=== PATIENT | female | born 1990 | race Caucasian/White ===

== ENCOUNTER 2021-07-23 11:32 | Outpatient (CLI) | payer OTHER, SELFPAY ==
[2021-07-23 13:17] LABS: Hematocrit 38.1 % (37-47); Hemoglobin 12.8 g/dL (12.0-15.0); Mean Corp Hgb Conc 33.6 g/dL (32-36); Mean Corpuscular Hgb 29.4 pg (27.0-32.0); Mean Corpuscular Volume 87.4 fL (81-99); Mean Platelet Vol. 9.8 fl (6.2-12.0); Platelet Count 307 K/mm3 (150-450); RBC Distribution Width CV 13.8 % (11.6-14.6); RBC Distribution Width SD 44.4 fl (35.1-43.9); Red Blood Count 4.36 M/mm3 (4.2-5.4)
[2021-07-23 13:37] LABS: Estradiol 33.8 pg/mL; Follicle Stimulating Hormone 13.4 mIU/mL; Prolactin 136.8 ng/mL; T4 Free Direct 1.03 ng/dL (0.76-1.46); Thyroid Stim Hormone (TSH) 3.84 uIU/mL (0.358-3.74)
== END 2021-07-23 23:59 | disposition home or self-care (01) ==
LOC: WOBLAB 11:36
PROVIDERS: Visit Provider Obstetrics & Gynecology
DX: N97.9 Female infertility, unspecified (principal)
CPT/HCPCS: 36415; 82627; 82670; 83001; 83002; 84146; 84402; 84439; 84443; 85027; 82626

== ENCOUNTER 2021-10-18 09:05 | Day surgery (SDC) | payer SELFPAY, OTHER ==
[2021-10-18] VITALS (7 sets, daily range): BP systolic 111–129; BP diastolic 70–87; PULSE 54–74; RESP 16; TEMP 36.8–37.4; O2SAT 95–98; BMI 26.6
--- NOTE | 2021-10-18 | EMB_PTH ---
PATIENT: JESS SAAVEDRA LOC: [facility] [place] U#:[id number] AGE/SX: 31/F ROOM: RE10/18/[address]: Dr. Fidel Saavedra MD : 1990 BED: DIS: 10/18/2021 SPEC #: [id number] RECD: 10/18/21 13:06 STATUS: DANI REEMA #: [id number] JOE: 10/18/21 00:[address]: Fidel Saavedra DEPT: SURGICAL PATHOLOGY RECD BY: Pratibha Bravo Tissues: Endometrium, NOS Procedures: Surgery Specimen Level IV HEADER OPERATION: Hysteroscopy, D & C Symphion, polypectomy PRE-OP DIAGNOSIS: Abnormal uterine bleeding, endometrial polyp TISSUE SUBMITTED: Endometrial curettings and polyp tissue MICROSCOPIC DIAGNOSIS Endometrial curettings and polyp: Proliferative endometrium with mild chronic endometritis. AM:junior 10/19/2021 MICROSCOPIC DESCRIPTION Slides are reviewed. GROSS DESCRIPTION Received in fixative is one container labeled with the patient's name and designated endometrial curettings. The specimen consists of multiple irregular fragments of red-marsh soft tissue that in aggregate measure 2.2 x 2 x 0.2 cm. The specimen is totally submitted in one cassette. / AM:junior 10/18/2021 TC:3 CPT: 36267
[2021-10-18 09:45] LABS: Internal QC Validated? YES +Cl - CLEAR BKGD; Pregnancy, Urine Negative Negative
--- NOTE | 2021-10-18 09:49 | PCM.HP.BLA ---
History and Physical Date of Admission: 10/18/21 Surgical History and Physical Date: 10/18/2021 Name: JESS SAAVEDRA Age: 31 Date of : 1990 Jess Saavedra, a 31 year old female 0 0 0 0 0, presents for Hysteroscopy, dilation and curettage, possible Symphion on 10/18/21 at 7:30am. -- Jess is here for hysteroscopy, polypectomy MEDICATIONS HISTORY: ALLERGIES: No Known Allergies Infections - Unknown Illnesses - Infertility Accidents - None Hospitalizations - None Review of Systems: GENERAL - Denies fever, or chills SKIN - Denies skin changes EYES - Denies visual changes EARS - Denies difficulty hearing NOSE - Denies nasal congestion or bleeding MOUTH - Denies sore throat or difficulty swallowing NECK - Denies pain or swelling RESPIRATORY - Denies shortness of breath or wheezing CARDIOVASCULAR - Denies palpitations or chest pain GASTROINTESTINAL - Denies nausea, vomiting, diarrhea, constipation GENITOURINARY - Denies dysuria, frequency of urination, incontinence of urine MUSCULOSKELETAL - Denies joint or muscle pain NEUROLOGICAL - Denies localized numbness or weakness PSYCHIATRIC - Denies depression or anxiety ENDOCRINE - Denies heat or cold intolerance, weight loss or gain HEMATO-IMMUNOLOGIC - Denies excessive bleeding with cuts SOCIAL HISTORY: Alcohol Use - None Smoking - Never Diet - no special diet Lifestyle - moderate stress lifestyle and Exercise - active work Seat Belt Use - most of the time Employer - [employer]Hel[employer] at [employer] Illicit Drug Use - None Sexual Activity - Spouse-Sig Other Name - Arminda Spouse-Sig Other Occupation - [employer] Control - None-attempting FAMILY HISTORY: MENSTRUAL HISTORY: LMP Known?- DefiniteAmount/Duration - 5 to 7 days, Regularity - Irregular, Frequency - variable days, LMP - 07/10/21, Age Onset Menarche - 11 PAST PREGNANCIES: Total Pregnancies - 0; Full Term Pregnancies - 0; Premature - 0; Abortions, Induced - 0; Abortions, Spontaneous - 0; Ectopics - 0; Multiple Births - 0; Living Children - 0 PHYSICAL EXAM BP- 128/80 Sitting, Right arm, regular cuff Weight- 140.28993 lbs Height- 61 inch BMI:26 CONSTITUTIONAL - NAD, well nourished, and well developed SKIN - No rash, lesions, or ulcers HEENT - Normocephalic, PERRLA, EOMI NECK - No nodes, no nuchal rigidity and thyroid normal size and texture LYMPH NODES - Palpation of lymph nodes in neck and groins within normal limits ABDOMEN - Without hepatosplenomegaly, distention, masses, rebound, or guarding; normal bowel sounds; no hernias EXTREMITIES - No edema or calf tenderness NEUROLOGICAL - Cranial nerves II-XII grossly intact PSYCHIATRIC - A and O to time, place, person, mood and affect External Genital Vagina - non-tender without lesions Urethra/Urethral Meatus - non-tender Bladder - non-tender Vagina - vaginal jansen are pink and moist without loss of rugae and no evidence of atrophy Cervix - without cervical motion tenderness and has normal size and features without evident lesions Uterus - 5-6 cm in size, mobile and nontender Adnexa - clear without masses or tenderness ASSESSMENT/PLAN: 1. Female Infertility, Unspecified Patient with AUB and polypectomy for hysteroscopy D&C today
[2021-10-18] MEDS: Lactated Ringers 1,000 ML 15 ML IV (09:52)
--- NOTE | 2021-10-18 11:05 | PCM.DC ---
Discharge Instructions Diet Discharge Diet: No restrictions Activity Discharge Activity: Return to Normal Activity, May Drive and May Shower May resume sexual activity in: 4-6 weeks Weight Bearing Status: Weight bearing as tolerated Dressing / Incision Call your doctor if your incision/area has: Continuous Slow Oozing and Foul Smelling Discharge Call your doctor if you observe: Fever of 101 or Higher, Shortness of breath and Chest pain Follow Up Care Please Follow Up With: Fidel Saavedra MD When: 2 weeks postoperatively Test Results: Test results from this visit will be discussed in further detail at your follow-up appointment, if applicable. Discharge Plan Admission Attending Provider: Fidel Saavedra Discharge Orders/Prescriptions Prescriptions: No Action ascorbic acid (vitamin C) [Vitamin C] 500 mg Tablet,Chewable 500 mg PO DAILY RF: 0 multivitamin Capsule 1 cap PO DAILY RF: 0 ferrous sulfate 325 mg (65 mg iron) Capsule, Extended Release 325 mg PO QODAY RF: 0 Disposition Discharge Orders: Discharge Patient (Routine); Ordered 10/18/21 Ordered By: Dr. Fidel Saavedra
--- NOTE | 2021-10-18 11:06 | OP.PCM_ITS ---
Report of Operation Date of Procedure: 10/18/21 Pre-Operative Diagnosis: Abnormal uterine bleeding, uterine polyp Post-Operative Diagnosis: Abnormal uterine bleeding, uterine polyp Surgery/Procedure Performed:: Hysteroscopy, dilation and curettage, uterine polypectomy via Symphion Description of Surgical Findings:: Surgeon: Fidel Saavedra MD Anesthesia: MAC EBL: 20 cc Urine output: Not measured IV fluids: 5 cc Complications: None Specimen: Polyp, endometrial curettings Findings: 2 cm fundal uterine polyp noted and removed. No other pathology noted Consent: Patient with abnormal uterine bleeding and uterine polyp elects for hyste roscopy, dilation and curettage, uterine polypectomy via Symphion. Patient understands the risk of the procedure include but are not limited to visceral or vascular injury, prolonged hospitalization, blood loss and need for transfusion, reoperation. Patient state understanding and wished to proceed. All questions were answered and consent was signed. Procedure: Patient was brought back to the OR where MAC anesthesia was found to be adequate. Patient was prepared and draped in dorsolithotomy position with yellowfin stirrups. Weighted speculum is placed in the posterior aspect of vagina and cervical dilators were used to dilate the cervix. Hysteroscope was inserted and above findings were noted. Polypectomy was performed with the assistance of the Symphion device. Polyp sent to pathology. Sharp curettage was performed under direct visualization in all quadrants. Good hemostasis was noted. All counts were correct x2. Patient tolerated procedure well and was brought to recovery in a stable condition
== END 2021-10-18 12:12 | disposition home or self-care (01) ==
LOC: SDC 09:12 → AC 09:15
PROVIDERS: Anesthesiology; Visit Provider Obstetrics & Gynecology
PROC: 0UB98ZZ Excision of Uterus, Via Natural or Artificial Opening Endoscopic (ICD-10-PCS; CPT 58558; principal; 2021-10-18 10:50)
DX: N93.9 Abnormal uterine and vaginal bleeding, unspecified (principal); N71.1 Chronic inflammatory disease of uterus; N97.9 Female infertility, unspecified
CPT/HCPCS: 58558; 00952; 81025; 88305; J7120; J2405